=== PATIENT | female | born 1970 | race Two or more races ===

== ENCOUNTER 2019-12-14 09:40 | Emergency (ER) | payer OTHER ==
[2019-12-14 09:52] VITALS: BP 137/73; PULSE 98; TEMP 98; BMI 34.3
--- NOTE | 2019-12-14 10:14 | PDOC ---
History of Present Illness - General Chief Complaint: Injury Stated Complaint: LFT HAND INJURY ( THUMB LACERATION) Time Seen by Provider: 12/14/19 09:49 History Source: Patient - History of Present Illness Occurred: reports: yesterday Severity: reports: mild Past History - Medical History Allergies/Adverse Reactions: Allergies Allergy/AdvReac Type Severity Reaction Status Date / Time No Known Allergies Allergy Verified 12/14/19 09:52 - Reproductive History Is Patient Now?: No - Psycho-Social/Smoking History Smoking History: Never smoked - Substance Abuse Hx (Audit-C & DAST Scrn) How often the patient has a drink containing alcohol: Never Score: In Men: 4 or > Positive; In Women: 3 or > Positive: 0 Screen Result (Pos requires Nsg. Audit-10AR): Negative In the last yr the pt used illegal drug/Rx for NonMed reason: No Score: Yes response is considered Positive: 0 Screen Result (Positive result requires Nsg. DAST-10): Negative Review of Systems - Review of Systems Neurological: No: Numbness, Tingling *Physical Exam - Vital Signs Last Vital Signs Temp Pulse Resp BP Pulse Ox 98.0 F 98 H 16 137/73 100 12/14/19 09:49 12/14/19 09:49 12/14/19 09:49 12/14/19 09:49 12/14/19 09:49 - Physical Exam General Appearance: Yes: Appropriately Dressed. No: Apparent Distress HEENT: positive: Normal Voice Neck: positive: Supple Respiratory/Chest: negative: Respiratory Distress Integumentary: positive: Dry, Warm, Other (~1cm curvilinear superficial lac to volar aspect of distal phalanx of L thumb) Neurologic: positive: Fully Oriented, Alert, Normal Mood/Affect Procedures - Laceration/Wound Repair Left 1st digit Wound Length: to 2.5 cm Wound's Depth, Shape: superficial Wound Repaired With: Dermabond Medical Decision Making - Medical Decision Making 12/14/19 10:14 49-year-old female, h/o DM, here w/ lac to L thumb after handling knife last night at home see exam Minor thumb lac S/p dermabond repair in ED Tetanus UTD To return as needed Discharge - Discharge Information Problems reviewed: Yes Clinical Impression/Diagnosis: Laceration of thumb Qualifiers: Encounter type: initial encounter Damage to nail status: without damage Foreign body presence: without foreign body Laterality: left Qualified Code(s): S61.012A - Laceration without foreign body of left thumb without damage to nail, initial encounter Condition: Good Disposition: HOME - Follow up/Referral - Patient Discharge Instructions Patient Printed Discharge Instructions: DI for Laceration Repair-Skin Glue Additional Instructions: Tiene odessa herida muy leve y pegamento para la piel (se aplic dermbond). No use pomada antibitica, ya que puede romper el adhesivo. Puede ducharse mientras el adhesivo est en la piel, anjel no se deysi ni se moje ni se frote el marybel nikky 7 a 10 hylton. Seque chaudhry piel dndole palmaditas suavemente con odessa toalla. El adhesivo se despegar por s solo, generalmente de 5 a 10 hylton. No es necesario volver a toma al mdico a menos que la herida no cicatrice lolita o tenga signos de infeccin, stefany enrojecimiento, hinchazn o pus. Print Language: CUBAN - Post Discharge Activity
== END 2019-12-14 11:15 | disposition home or self-care (01) ==
LOC: JERFT 09:40
PROC: 0HQGXZZ Repair Left Hand Skin, External Approach (ICD-10-PCS; principal; 2019-12-14)
DX: S61.012A Laceration without foreign body of left thumb without damage to nail, initial encounter (principal)
CPT/HCPCS: 99282-25